=== PATIENT | female | born 1980 | race Caucasian/White ===

== ENCOUNTER 2017-11-15 10:48 | Day surgery (SDC) | payer OTHER ==
[2017-11-14 16:20] VITALS: BMI 25.0
[2017-11-15] MEDS ORDERED: PROPOFOL 20 ML ONE (11:28)
[2017-11-15 13:22] VITALS: TEMP 97.6
[2017-11-15 14:16] VITALS: BP 112/58; PULSE 78
== END 2017-11-15 14:00 | disposition home or self-care (01) ==
LOC: FASU-ENDO 10:48
PROVIDERS: ATTEND Internal Medicine Gastroenterology
PROC: 0DJD8ZZ Inspection of Lower Intestinal Tract, Via Natural or Artificial Opening Endoscopic (ICD-10-PCS; principal; 2017-11-15 12:42)
DX: D50.9 Iron deficiency anemia, unspecified (principal); K64.0 First degree hemorrhoids
CPT/HCPCS: 84703

== ENCOUNTER 2018-05-08 11:09 | Emergency (ER) | payer OTHER ==
[2018-05-08 11:29] VITALS: BP 117/61; PULSE 90; TEMP 97.8; BMI 19.5
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
[2018-05-08] MEDS ORDERED: ACETAMINOPHEN 325 MG TABLET (FP) PO ONE (12:31)
[2018-05-08] MEDS ORDERED: ACETAMINOPHEN 1000 MG/100 ML VIAL (NON FORMULARY) IVPB ONE (12:57)
[2018-05-08 13:01] LABS: HEMATOCRIT 33.9 % (32.4-45.2); HEMOGLOBIN 11.3 GM/dL (10.7-15.3); MCH 25.6 pg (25.7-33.7); MCHC 33.3 g/dl (32.0-36.0); MEAN PLT VOLUME 8.6 fl (7.5-11.1); PLATELET COUNT 338 K/MM3 (134-434); RDW 16.3 % (11.6-15.6); WHITE BLOOD COUNT 8.2 K/mm3 (4.0-10.0)
[2018-05-08] MEDS ORDERED: ACETAMINOPHEN INJECTION 100 ML IVPB ONE (13:02)
[2018-05-08 13:52] LABS: ALBUMIN 3.8 g/dl (3.4-5.0); ALK PHOS 82 U/L (45-117); ANION GAP 5 MMOL/L (8-16); BILIRUBIN,TOTAL 0.3 mg/dL (0.2-1); BLOOD UREA NITROGEN 11 mg/dL (7-18); CALCIUM 8.9 mg/dL (8.5-10.1); CHLORIDE 106 mmol/L (98-107); CO2 26 mmol/L (21-32); CREATININE 0.8 mg/dL (0.55-1.3); GLUCOSE,RANDOM 92 mg/dL (74-106); POTASSIUM 3.9 mmol/L (3.5-5.1); SGPT/ALT 20 U/L (13-61); SODIUM 137 mmol/L (136-145)
[2018-05-08 15:22] LABS: SGOT/AST 7 U/L (15-37)
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
[2018-05-08] MEDS ORDERED: KETOROLAC TROMETHAMINE 15 MG/ML VIAL IVPUSH ONE (17:01)
[2018-05-08] MEDS ORDERED: KETOROLAC TROMETHAMINE 15 MG/ML VIAL ONE (17:10)
== END 2018-05-08 18:39 | disposition home or self-care (01) ==
LOC: JER 11:09
PROC: 3E033NZ Introduction of Analgesics, Hypnotics, Sedatives into Peripheral Vein, Percutaneous Approach (ICD-10-PCS; principal; 2018-05-08)
PROC: 3E0333Z Introduction of Anti-inflammatory into Peripheral Vein, Percutaneous Approach (ICD-10-PCS; 2018-05-08)
DX: M54.2 Cervicalgia (principal); M54.6 Pain in thoracic spine; M54.5 Low back pain; M25.562 Pain in left knee; V43.52XA Car driver injured in collision with other type car in traffic accident, initial encounter; Y92.414 Local residential or business street as the place of occurrence of the external cause; Y93.89 Activity, other specified; Y99.8 Other external cause status
CPT/HCPCS: 36415; 70450-TC; 71046-TC-FY; 71250-TC; 72125-TC; 73562-TC-LT-FY; 74176-TC; 80053; 84703; 85027; 99282-25; J0131

== ENCOUNTER 2018-11-23 15:24 | Emergency (ER) | payer OTHER ==
[2018-11-23 15:29] VITALS: BP 113/70; PULSE 85; TEMP 97.9; BMI 23.5
[2018-11-23] MEDS ORDERED: IBUPROFEN 400 MG TABLET (FP) PO ONE ×2 (15:51→15:55)
--- NOTE | 2018-11-23 16:02 | PDOC ---
History of Present Illness - General Chief Complaint: Injury Stated Complaint: LF FOOT INJURY Time Seen by Provider: 11/23/18 15:28 History Source: Patient - History of Present Illness Occurred: reports: this morning Pain Location: reports: lower extremity Past History - Past Medical History Allergies/Adverse Reactions: Allergies Allergy/AdvReac Type Severity Reaction Status Date / Time Penicillins Allergy Severe Difficulty Verified 11/23/18 15:26 Breathing/ITCHING Home Medications: Ambulatory Orders Ibuprofen [Motrin -] 600 mg PO QID #28 tablet 11/23/18 Anemia: Yes Asthma: No Cancer: No Cardiac Disorders: No CVA: No COPD: No CHF: No Dementia: No Diabetes: No GI Disorders: No Disorders: No HTN: No Hypercholesterolemia: No Liver Disease: No Seizures: No Thyroid Disease: Yes (NO MEDS-hypothyroid) - Surgical History Abdominal Surgery: No Appendectomy: No Cardiac Surgery: No Cholecystectomy: No Lung Surgery: No Neurologic Surgery: No Orthopedic Surgery: Yes (LEFT ANKLE FX REPAIR) - Psycho Social/Smoking Cessation Hx Smoking History: Never smoked Have you smoked in the past 12 months: No Hx Alcohol Use: No Drug/Substance Use Hx: No Substance Use Type: None Hx Substance Use Treatment: No Review of Systems - Review of Systems Musculoskeletal: Yes: Joint Pain, Joint Swelling *Physical Exam - Vital Signs Last Vital Signs Temp Pulse Resp BP Pulse Ox 97.9 F 85 19 113/70 98 11/23/18 15:27 11/23/18 15:27 11/23/18 15:27 11/23/18 15:27 11/23/18 15:27 - Physical Exam General Appearance: Yes: Appropriately Dressed. No: Apparent Distress HEENT: positive: Normal Voice Neck: positive: Supple Extremity: positive: Tender, Swelling (to dorsum of L 5th metatarsal) Integumentary: positive: Dry, Warm Neurologic: positive: Fully Oriented, Alert, Normal Mood/Affect Medical Decision Making - Medical Decision Making 11/23/18 15:52 38 yo female, s/p L ankle surgery in 2014, here w/ L foot pain and swelling after missing steps today See exam L foot sprain XR neg for fx but shows 1 dislodged screw from prior surgery -NICK placed and crutches given -Dc w/ pain control and ortho f/u Discharge - Discharge Information Problems reviewed: Yes Clinical Impression/Diagnosis: Sprain of foot, left Qualifiers: Encounter type: initial encounter Qualified Code(s): S93.602A - Unspecified sprain of left foot, initial encounter Disposition: HOME - Additional Discharge Information Prescriptions: Ibuprofen [Motrin -] 600 mg PO QID #28 tablet - Follow up/Referral Referrals: Juan Francisco Yu MD [Staff Physician] - - Patient Discharge Instructions Patient Printed Discharge Instructions: DI for Foot Sprain Additional Instructions: Your x-ray shows no fracture However it appears that one of the screws from your previous surgery came out of place. It is unlikely that your injury today caused that but you should inform your orthopedics at [place] If current pain lasts beyond 2 weeks please follow-up with your orthopedics Keep Nick in place for comfort. You can also elevate elevate and ice extremity. 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
== END 2018-11-23 16:14 | disposition home or self-care (01) ==
LOC: JERFT 15:24
DX: S93.602A Unspecified sprain of left foot, initial encounter (principal); W10.8XXA Fall (on) (from) other stairs and steps, initial encounter; Y93.89 Activity, other specified; Y92.89 Other specified places as the place of occurrence of the external cause; Y99.8 Other external cause status; Z88.0 Allergy status to penicillin; D64.9 Anemia, unspecified; E03.9 Hypothyroidism, unspecified
CPT/HCPCS: 73610-TC-LT-FY; 73630-TC-LT; 99282-25

== ENCOUNTER 2023-08-09 11:02 | Emergency (ER) | payer OTHER ==
[2023-08-09 11:10] VITALS: RESP 18; BMI 28.6
[2023-08-09 12:26] LABS: BASO % 0.9 % (0-2.0); EOS % 2.2 % (0-4.5); HEMOGLOBIN 9.1 GM/dL (10.7-15.3); LYMPH % 24.7 % (8-40); MCH 20.8 pg (25.7-33.7); MCHC 31.4 g/dl (32.0-36.0); MEAN CELL VOLUME 66.4 fl (80-96); MEAN PLT VOLUME 7.3 fl (7.5-11.1); MONO % 9.9 % (3.8-10.2); NEUT % 62.3 % (42.8-82.8); PLATELET COUNT 363 10^3/uL (134-434); RBC 4.36 M/mm3 (3.60-5.2); RDW 19.3 % (11.6-15.6); WHITE BLOOD COUNT 6.7 K/mm3 (4.0-10.0)
[2023-08-09] MEDS: ACETAMINOPHEN 1000 MG/100 ML BAG IVPB ONE (12:32)
[2023-08-09 12:41] LABS: POTASSIUM 4.1 mmol/L (3.5-5.1)
[2023-08-09 12:43] LABS: ALBUMIN 3.7 g/dl (3.4-5.0); CALCIUM 9.2 mg/dL (8.5-10.1)
[2023-08-09 12:47] LABS: CREATININE 0.7 mg/dL (0.55-1.3)
[2023-08-09 12:49] LABS: BILIRUBIN,TOTAL 0.4 mg/dL (0.2-1); TOT PROT 7.5 g/dl (6.4-8.2)
[2023-08-09 13:28] LABS: INR 1.05 (0.83-1.09); PROTHROMBIN TIME (PATIENT) 11.8 SEC (9.7-13.0)
[2023-08-09 13:54] LABS: ANISOCYTOSIS 1+; MACROCYTOSIS 0; OVALOCYTE 1+
[2023-08-09] MEDS ORDERED: KETOROLAC TROMETHAMINE 15 MG/ML VIAL ONE (14:09)
[2023-08-09 14:15] VITALS: BP 116/76; PULSE 99; TEMP 98.2
[2023-08-09] MEDS: KETOROLAC TROMETHAMINE 15 MG/ML VIAL IVPUSH ONE (14:18)
[2023-08-09] MEDS: KETOROLAC TROMETHAMINE 30 MG/1 ML VIAL IM ONE (14:20)
[2023-08-09] MEDS ORDERED: KETOROLAC TROMETHAMINE 30 MG/1 ML VIAL ONE (14:21)
== END 2023-08-09 17:27 | disposition home or self-care (01) ==
LOC: JER 11:02
PROC: 3E033NZ Introduction of Analgesics, Hypnotics, Sedatives into Peripheral Vein, Percutaneous Approach (ICD-10-PCS; principal; 2023-08-09)
PROC: 3E0233Z Introduction of Anti-inflammatory into Muscle, Percutaneous Approach (ICD-10-PCS; 2023-08-09)
DX: R07.9 Chest pain, unspecified (principal); R06.02 Shortness of breath; R00.0 Tachycardia, unspecified
CPT/HCPCS: 36415; 71046-TC-FY; 80053; 84484; 84703; 85025; 85379; 85610; 85730; 86850; 86900; 86901; 93005; 93010; 99285-25; J0131

== ENCOUNTER 2024-01-26 09:17 | Emergency (ER) | payer OTHER ==
[2024-01-26 09:37] VITALS: BP 118/81; PULSE 94; RESP 16; TEMP 98.2; BMI 26.9
[2024-01-26] MEDS ORDERED: LIDOCAINE 4% PATCH TP ONE (10:33)
[2024-01-26] MEDS ORDERED: KETOROLAC TROMETHAMINE 30 MG/1 ML VIAL ONE (10:33)
[2024-01-26] MEDS: KETOROLAC TROMETHAMINE 30 MG/1 ML VIAL IM ONE (10:38)
[2024-01-26] MEDS: LIDOCAINE 4% PATCH TP ONE (10:39)
[2024-01-26] MEDS ORDERED: LIDOCAINE PATCH REMOVAL MC ONE (22:00)
== END 2024-01-26 12:05 | disposition home or self-care (01) ==
LOC: JERFT 09:17
PROC: 3E0133Z Introduction of Anti-inflammatory into Subcutaneous Tissue, Percutaneous Approach (ICD-10-PCS; principal; 2024-01-26)
DX: M62.838 Other muscle spasm (principal)
CPT/HCPCS: 99284-25